=== PATIENT | male | born 1950 | race Caucasian/White ===

== ENCOUNTER 2022-07-08 08:02 | Emergency (ER) | payer MEDICARE, SELFPAY ==
--- NOTE | 2022-07-08 08:05 | ED.URI ---
HPI - URI/Sore Throat General Chief Complaint: Upper Respiratory Infection Stated Complaint: TIGHT/SCRATCHY THROAT Time Seen by Provider: 07/08/22 08:05 Source: patient Mode of arrival: ambulatory Limitations: no limitations History of Present Illness HPI Narrative: Mr. Justin is a 71-year-old male patient presenting to the clinic today with complaints of a scratchy/irritated throat x1 day He reports his symptoms began yesterday with a runny nose and drainage in the back of his throat. He denies any fever or chills. He reports that his is also ill and has been seen and been given antibiotics for early pneumonia. MD elicited complaint: sore throat and nasal congestion Related Data Home Medications Medication Instructions Recorded Confirmed aspirin 325 mg tablet 325 mg PO DAILY 06/02/20 07/03/20 atorvastatin 40 mg tablet 40 mg PO DAILY 06/02/20 07/03/20 canagliflozin 100 mg tablet 100 mg PO DAILY 06/02/20 07/03/20 (Invokana) carvedilol 25 mg tablet 25 mg PO Q12H 06/02/20 07/03/20 cyanocobalamin (vitamin B-12) 1,000 mcg PO DAILY 06/02/20 07/03/20 1,000 mcg tablet flaxseed oil 1,000 mg capsule 1,000 mg PO DAILY 06/02/20 07/03/20 glimepiride 2 mg tablet 2 mg PO QAM 06/02/20 07/03/20 lactobacillus combination no.8 3 3,000 mmu cells PO DAILY 06/02/20 07/03/20 billion cell capsule (Adult Probiotic) metformin 1,000 mg tablet 1,000 mg PO BID 06/02/20 07/03/20 olmesartan 40 mg tablet 40 mg PO DAILY 06/02/20 07/03/20 dapagliflozin 5 mg tablet (Farxiga) mg 07/08/22 Allergies Allergy/AdvReac Type Severity Reaction Status Date / Time No Known Drug Allergies Allergy Unknown Unknown Verified 07/08/22 08:11 Review of Systems Review of Systems: Pertinent positives per HPI. Patient denies any fever, chills, rash, headache, visual changes, dizziness, cough, shortness of breath, chest pain, palpitations, nausea, vomiting, diarrhea, constipation, abdominal pain, or any urinary issues. [facility] Past Medical History Medical History Diabetes Type II Left shoulder pain Rotator cuff tear Tendinopathy of rotator cuff Vision abnormalities Family History Family History Unknown Diabetes mellitus Social History Social History Smoking status: Never smoker Alcohol intake: current Alcohol use details: occasionally Comments At the time of my signature, I reviewed and agree with the nursing past medical, surgical, social, and family history. There is no relevant family history pertinent to the patient complaint. Exam Narrative: General: Well-developed, well nourished, in no apparent distress Head: Normocephalic, atraumatic Eyes: Pupils equally round and reactive to light bilaterally, EOM intact, sclera and conjunctive clear, no discharge, lids normal Ears: TMs intact and clear, ear canals clear, no drainage, grossly hearing normal. Nose: Nares patent, clear nasal discharge, mild inflammation, no sinus tenderness. Mouth: Oropharynx without lesions or masses, good dentition, MMM. Postnasal drip Neck: Supple, trachea midline, no enlargement of anterior or posterior cervical nodes, no thyroid masses or goiter palpable. Cardio: Regular rate and rhythm, s1 and s2 normal, no murmur appreciated. Resp: Clear to auscultation bilaterally anteriorly and posteriorly, no rhonchi, rales, wheezing or rubs Course Course Emergency Course: Portions of this record may have been created with voice recognition software. Level of Care: Express Care Visit Vital Signs Vital signs: Vital Signs Temperature 36.6 C 07/08/22 08:13 Pulse Rate 52 L 07/08/22 08:13 Respiratory Rate 16 07/08/22 08:13 Blood Pressure 129/74 07/08/22 08:13 Pulse Oximetry 100 07/08/22 08:13 Oxygen Delivery Room Air 07/08/22 08:13 Temperature 36.6 C
[2022-07-08 08:13] VITALS: BP 129/74; PULSE 52; RESP 16; TEMP 36.6; O2SAT 100
== END 2022-07-08 08:42 | disposition home or self-care (01) ==
PROVIDERS: Emergency Provider Nurse Practitioner Family; PCP Internal Medicine
DX: R09.82 Postnasal drip (principal); J06.9 Acute upper respiratory infection, unspecified; E11.9 Type 2 diabetes mellitus without complications
CPT/HCPCS: 87081; 87880; 99213; G0463

== ENCOUNTER 2023-09-07 10:43 | Emergency (ER) | payer MEDICARE, SELFPAY ==
--- NOTE | 2023-09-07 10:50 | ED.URI ---
HPI - URI/Sore Throat General Chief Complaint: Upper Respiratory Infection Stated Complaint: Sore Throat Time Seen by Provider: 09/07/23 11:09 Source: patient and RN notes reviewed Mode of arrival: ambulatory Limitations: no limitations History of Present Illness HPI Narrative: 73 year old male presents with concern for sore throat, painful swallowing. He reports history of post nasal drainage. He is concerned for strep, but is also concerned about a potential reaction from an RSV vaccine he received 3 days ago. He denies fever, tongue swelling, lip swelling, vomiting, diarrhea, SOB. He denies cough, nasal congestion, cough MD elicited complaint: sore throat Related Data Home Medications Medication Instructions Recorded Confirmed aspirin 325 mg tablet 325 mg PO DAILY 06/02/20 09/07/23 atorvastatin 40 mg tablet 40 mg PO DAILY 06/02/20 09/07/23 carvedilol 25 mg tablet 25 mg PO Q12H 06/02/20 09/07/23 cyanocobalamin (vitamin B-12) 1,000 mcg PO DAILY 06/02/20 09/07/23 1,000 mcg tablet flaxseed oil 1,000 mg capsule 1,000 mg PO DAILY 06/02/20 09/07/23 glimepiride 2 mg tablet 2 mg PO QAM 06/02/20 09/07/23 lactobacillus combination no.8 3 3,000 mmu cells PO DAILY 06/02/20 09/07/23 billion cell capsule (Adult Probiotic) metformin 1,000 mg tablet 1,000 mg PO BID 06/02/20 09/07/23 olmesartan 40 mg tablet 40 mg PO DAILY 06/02/20 09/07/23 dapagliflozin propanediol 5 mg 5 mg PO DAILY 07/08/22 09/07/23 tablet (Farxiga) Allergies Allergy/AdvReac Type Severity Reaction Status Date / Time No Known Drug Allergies Allergy Unknown Unknown Verified 09/07/23 10:56 Review of Systems Review of Systems: CONSTITUTIONAL: Denies malaise, chills, sweats, or fever. EYES: Denies visual changes, redness, or discharge. ENT: Denies rhinorrhea, congestion, sinus pain, otalgia. Reports postnasal drainage and sore throat. CARDIOVASCULAR: Denies chest pain, palpitations, or edema. RESPIRATORY: Denies cough. Denies dyspnea. GASTROINTESTINAL: Denies abdominal pain, nausea, vomiting, diarrhea SKIN: Denies rash or itching. MUSCULOSKELETAL: Denies myalgia. NEUROLOGIC: Denies headache. All systems reviewed & are unremarkable except as noted in HPI and below PMFSH Past Medical History Medical History Diabetes Type II Left shoulder pain Rotator cuff tear Tendinopathy of rotator cuff Vision abnormalities Family History Family History Unknown Diabetes mellitus Social History Social History Smoking status: Never smoker Alcohol intake: current Alcohol use details: occasionally Comments At time of signature, agree with nursing past medical, surgical, social and family history. There is no relevant family history pertinent to the presenting complaint Exam Narrative: GENERAL: Well-appearing, well-nourished, and in no acute distress. HEAD: Normocephalic EYES: PERRLA, conjunctivae clear ENT: Nares clear. Mucous membranes moist. TM pearly tompkins with sharp light reflex bilaterally; no tragal tenderness. Oropharynx not erythematous without lesions. Tonsils not enlarged and without exudate, no drooling, no hoarseness, no trismus, uvula midline. Postnasal drainage noted NECK: Supple. No lymphadenopathy CHEST: Clear to auscultation, breath sounds equal. No wheezing, rhonchi, rales, or stridor. No respiratory distress, speaks in full sentences. HEART: Regular rate and rhythm. No murmur heard. SKIN: Warm, dry, no rash. NEURO: Alert and oriented x3. PSYCH: Normal mood and affect Course Course Emergency Course: Patient is aware of diagnosis, understands and agrees to treatment plan. Anticipatory guidance given. Patient agrees to follow-up as directed and is aware of reasons to seek care at the emergency department. Portions of this record may have been cre
[2023-09-07 10:59] VITALS: BP 132/64; PULSE 50; RESP 16; TEMP 36.5; O2SAT 100
[2023-09-07 11:02] VITALS: BP 132/64; PULSE 50; RESP 16; TEMP 36.5; O2SAT 100
== END 2023-09-07 11:20 | disposition home or self-care (01) ==
PROVIDERS: Emergency Provider Nurse Practitioner
DX: J02.9 Acute pharyngitis, unspecified (principal); E11.9 Type 2 diabetes mellitus without complications; Z79.84 Long term (current) use of oral hypoglycemic drugs; Z79.82 Long term (current) use of aspirin
CPT/HCPCS: 87081; 87880; 99213; G0463

== ENCOUNTER 2025-08-30 00:36 | Emergency (ER) | payer MEDICARE, SELFPAY ==
--- OUTSIDE RECORDS SUMMARY | 2025-08-29 08:30 | XMS_ITS | Encounter Summary ---
Author Organization [facility] Address [address] [place] [address] Phone Care Team Providers Care Telecommunications Sales Representative Name Role Phone Ronal Gama MD Primary Care Provider Vinnie Mina DO Unavailable [phone] Reason for Visit * Reason Comments Diabetes Mellitus 6 month follow up Encounter Details Date Type Department Care Team (Late st Contact Info) Description 08/29/2025 8:30 AM CDT Office Visit [facility] - [facility] [address] [place] [address] Ronal Gama MD [address] [address] Type 2 diabetes mellitus without complication, without long-term current use of insulin (Primary Dx); Essential hypertension; Pure hypercholesterolemia ; Screening for prostate cancer Discharge Disposition: Discharged to home or Selfcare Social History Tobacco Use Types Packs/Day Years Used Date Smoking Tobacco: Never Smokeless Tobacco: Never Tobacco Cessation:Counseling Given: No Alcohol Use Standard Drinks/Week Comments Yes 0 (1 standard drink = 0.6 oz pur e alcohol) weekends 2-3 drinks [facility] Utilities Answer Date Recorded In the past 12 months has e [place], gas, oil, or water [email or web address] threatened to shut off services in your home? No 02/25/2025 Social Connection and Isolation Panel Answer Date Recorded In a typical week, how many times do you talk on the phone with family, friends, or neighbors? Three times a week 02/26/20 How often do you get togethe r with friends or relatives? Once a week 02/25/2025 How often do you attend chur or mormonism services? Patient declined 02/25/2025 Do you belong to any clubs o r organizations such as voodoo groups, unions, fraternal or athletic groups, or school groups? Yes 02/25/2025 How often do you attend meet ings of the clubs or organizations you belong to? 1 to 4 times per year 02/25/2025 Are you , , di vorced, , never , or living with a partner? 02/25/2025 AUDIT-C Answer Date Recorded Q1: How often do you have a drink containing alc ohol? 2-4 times a month 02/25/2025 Average Number of Drinks Not on file 025 Q3: How often do you have si x or more drinks on one occasion? Never 02/25/2025 Overall Financial Resource Strain (CARDIA) Answe r Date Recorded How hard is it for you to pa y for the very basics like food, housing, medical care, and heating? Not hard at all 02/25/2025 PHQ-2 Answer Date Recorded Total Score - Questions 1-9 0 04/2024 [facility] - Occupational Stress Questionnaire Answer Date Recorded Do you feel stress - tense, restless, nervous, or anxious, or unable to sleep at night because your mind is troubled all the time - these days? Patient declined 02/25/2025 Exercise Vital Sign Answer Date Recorde d On average, how many days pe r week do you engage in moderate to strenuous exercise (like a brisk walk)? 4 days 02/25/2025 On average, how many minutes do you engage in exercise at this level? 40 min 02/25/2025 Hunger Vital Sign Answer Date Recorded Within the past 12 months, y ou worried that your food would run out before you got the money to buy more. Never true 02/26/20 25 Within the past 12 months, t he food you bought just didn't last and you didn't have money to get more. Never true 02/25/2025 PRAPARE - Transportation Answer Date Re corded In the past 12 months, has l ack of transportation kept you from medical appointments or from getting medications? No 02/06 In the past 12 months, has l ack of transportation kept you from meetings, work, or from getting things needed for daily living? No 02/25/2025 Housing Stability Vital Sign Answer Ron e Recorded In the last 12 months, was t here a time when you were not able to pay the mortgage or rent on time? No 12/11/2023 In the last 12 months, how many places have you lived? 1 12/11/2023 In the last 12 months, was t here a time when you did not have a steady place to sleep or slept in a intermediate (including now)? No 12/11/2023 Housing Stability Vital Sign Answer Ron e Recorded In the last 12 months, was t here a time when you were not able to pay the mortgage or rent on time? No 02/25/2025 Number of Times Moved in the Last Year Not on fi le 02/25/2025 At any time in the past 12 m [facility], were you homeless or living in a intermediate (including now)? No 02/25/2025 Education Answer Date Recorded What is the highest level of school you have completed or the highest degree you have received? Master's degree (e.g., MA, MS, Scott, MEd, [employer]FFEE [employer], [employer]) 06/22/2023 Sex and Gender Information Value Date Recorded Sex Assigned at Male 06/21/2023 10:36 AM CDT Legal Sex Male 10:00 PM CDT Gender Identity Male 06/21/2023 10:36 AM CDT Sexual Orientation Not on file Occupation Industry Job Start Date Job End Date retired from [employer]. Not on file Not o n file Not on file documented as of this encounter Last Filed Vital Signs Vital Sign Reading Time Taken Comments Blood Pressure 92/54 08/29/2025 8:15 AM CDT Pulse 58 08/29/2025 8:15 AM CDT Temperature 36.3 C (97.4 F) 08/29/2025 8:15 AM CDT Respiratory Rate 16 08/29/2025 8:15 AM CDT Oxygen Saturation 99% 08/29/2025 8:15 AM CDT Inhaled Oxygen Concentration - - Weight 75.9 kg (167 lb 4.8 oz) 08/29/2025 8:15 A M CDT Height 172.7 cm (5' 8) 08/29/2025 8:15 AM CDT Body Mass Index 25.44 08/29/2025 8:15 AM CDT documented in this encounter Progress Notes * AusitnNolvia mckoy, RMA - 08/29/2025 8:30 AM CDT Kian Lebron Justin Jr., 75 y.o., male is here for Diabetes Mellitus (6 month follow up ) Medication Refills: Patient reports/denies need for medication refills. Orders Pended: no Requested Prescriptions No prescriptions requested or ordered in this encounter Home Medications Medication Sig Start Date End Date Taking? Authorizing Provider aspirin EC (ECOTRIN) 325 MG Tablet Delayed Response Take 325 mg by mouth daily. Yes Wyatt Tellez MD atorvastatin (LIPITOR) 80 MG Tablet TAKE 1/2 TABLET BY MOUTH DAILY 04/16/25 Yes Ronal Gama MD carvedilol (COREG) 25 MG Tablet TAKE 1 TABLET BY MOUTH EVERY DAY 07/24/25 Yes Ronal Gama MD Farxiga 5 MG Tablet TAKE 1 TABLET BY MOUTH DAILY 07/10/25 Yes Ronal Gama MD Flaxseed, Linseed, (FLAXSEED OIL PO) Take by mouth. Patient not taking: Reported on 08/29/2025 Wyatt Tellez MD meclizine (ANTIVERT) 25 MG Tablet Take 1 Tab by mouth 3 times daily as needed for Dizziness. Patient not taking: Reported on 08/29/2025 01/14/20 Belkys Pal APRN, VENDING MACHINE COLLECTOR metFORMIN (GLUCOPHAGE) 1000 MG Tablet TAKE 1 TABLET BY MOUTH TWICE DAILY 05/13/25 Yes Ronal Gama MD metoclopramide (REGLAN) 10 MG Tablet Take 1 Tab by mouth 4 times daily as needed for Nausea - 1st line. Patient not taking: Reported on 08/29/2025 04/12/18 Sanjiv Will MD Olmesartan Medoxomil 40 MG Tablet TAKE 1 TABLET BY MOUTH DAILY 05/13/25 Yes Ronal Gama MD ondansetron (ZOFRAN) 4 MG Tablet Take 1 Tab by mouth every 8 hours as needed for Nausea - 1st line.01/14/20 Yes Belkys Pal, INSIDE PLANT SUPERVISOR, VENDING MACHINE COLLECTOR There are no discontinued medications. I have reviewed the home medication list with the patient and have reconciled discrepancies. The list is accurate to the best of my knowledge. Smoking Status: Social History[1] Smoking Cessation Counseling Given: no Health Care Maintenance: Health Maintenance Due Topic Date Due Hepatitis C Virus (HCV) Screening Never done TdaP Immunization Never done Hepatitis B Immunization (1 of 3 - Risk 3-dose series) Never done Medicare Initial AWV [id number] Never done Diabetes: Eye Exam 11/19/2025 Orders Pended: no The following BPA's have been addressed with the patient today: No BPAs [1] Social History Tobacco Use Smoking status: Never Smokeless tobacco: Never Vaping Use Vaping status: Never Used Substance Use Topics Alcohol use: Yes Alcohol/week: 0.0 oz Comment: weekends 2-3 drinks Drug use: No * Ronal Gama MD - 08/29/2025 8:30 AM CDT SUBJECTIVE: Kian Justin is here to follow-up/ evaluation on his 1. Type 2 diabetes mellitus without complication, without long-term current use of insulin 2. Essential hypertension 3. Pure hypercholesterolemia Past Medical History Positives Diagnosis Date Adenomatous colon polyp Diabetes mellitus Hyperlipidemia Hypertension Obesity Past Surgical History[1] Social History Tobacco Use Smoking status: Never Smokeless tobacco: Never Substance Use Topics Alcohol use: Yes Alcohol/week: 0.0 oz Comment: weekends 2-3 drinks Exercise: yes. Swims 3 times weekly ROS: He denies chest pain, dyspnea, claudication, visual symptoms. He denies symptoms of transient ischemic attacks. No lightheadedness, palpitations, or syncope. No edema. He is compliant in taking his medication and denies medication side effects. Says doing okay Has lost weight Outpatient Medications Marked as Taking for the 08/29/25 encounter (Office Visit) with Ronal Gama MD Medication Sig Dispense Refill aspirin EC (ECOTRIN) 325 MG Tablet Delayed Response Take 325 mg by mouth daily. atorvastatin (LIPITOR) 80 MG Tablet TAKE 1/2 TABLET BY MOUTH DAILY 46 Tablet 1 carvedilol (COREG) 25 MG Tablet TAKE 1 TABLET BY MOUTH EVERY DAY 90 Tablet 1 Farxiga 5 MG Tablet TAKE 1 TABLET BY MOUTH DAILY 90 Tablet 1 metFORMIN (GLUCOPHAGE) 1000 MG Tablet TAKE 1 TABLET BY MOUTH TWICE DAILY 180 Tablet 1 Olmesartan Medoxomil 40 MG Tablet TAKE 1 TABLET BY MOUTH DAILY 90 Tablet 1 ondansetron (ZOFRAN) 4 MG Tablet Take 1 Tab by mouth every 8 hours as needed for Nausea - 1st line.15 Tab 0 Allergies[2] LABS Lab Results Component Value Date WBC 6.68 08/22/2025 HEMOGLOBIN 14.0 08/22/2025 PLATELETCNT 227 08/22/2025 CHOLESTEROL 103 08/22/2025 TRIGLYCRIDES 68 08/22/2025 TRIGLYCRIDES 55 01/31/2025 TRIGLYCRIDES 56 06/12/2024 HDLCHOLESTE 41 08/22/2025 HDLCHOLESTE 39 (L) 01/31/2025 HDLCHOLESTE 35 (L) 06/12/2024 LDL 48 08/22/2025 LDL 52 01/31/2025 LDL 59 06/12/2024 PSASCREEN 0.19 11/22/2023 HGBA1C 5.5 08/22/2025 HGBA1C 5.1 01/31/2025 HGBA1C 5.6 06/12/2024 MACRRAND 8 06/12/2024 [id number] 01/31/2025 Lab Results Component Value Date SODIUM 141 08/22/2025 POTASSIUM 3.8 08/22/2025 CHLORIDE 107 08/22/2025 CO2VEN 25 08/22/2025 ANIONGAP 12.8 08/22/2025 GLUCOSE 136 (H) 08/22/2025 BUN 13 08/22/2025 CREATININE 0.83 08/22/2025 BCRATIO8 16 08/22/2025 TOTALPROTEIN 6.5 08/22/2025 ALBUMIN 3.8 08/22/2025 CALCIUM 9.3 08/22/2025 TBIL 0.4 08/22/2025 SGOTAST 28 08/22/2025 SGPTALT 31 08/22/2025 ALKALINEPHO 61 08/22/2025 GFRNA >60 08/22/2025 GFRA >60 08/22/2025 TSH 0.804 08/22/2025 OBJECTIVE Well-nourished, well-developed, pleasant, cooperative 75 y.o. male in no acute distress. Vitals: 08/29/25 0815 BP: 92/54 Pulse: 58 Resp: 16 Temp: 97.4 ??F (36.3 ??C) TempSrc: Temporal SpO2: 99% Weight: 167 lb 4.8 oz (75.9 kg) Height: 5' 8 (1.727 m) Body mass index is 25.44 kg/m??. BP Readings from Last 3 Encounters: 08/29/25 92/54 02/27/25 110/64 07/16/24 112/64 Wt Readings from Last 3 Encounters: 08/29/25 167 lb 4.8 oz (75.9 kg) 02/27/25 176 lb 14.4 oz (80.2 kg) 07/16/24 191 lb 12.8 oz (87 kg) SKIN: Warm and dry. EYES:. Sclerae are clear. NECK: Supple. No thyromegaly or adenopathy, no bruits. BACK: No spine or costovertebral angle tenderness. LUNGS: Clear to auscultation and percussion. HEART:normal rate, regular rhythm, normal S1, S2, no murmurs, rubs, clicks or gallops. ABDOMEN: Bowel sounds are active. No masses. No organomegaly, no tenderness. No bruits. EXTREMITIES: No edema. Glasses Alert ASSESSMENT AND PLAN Diagnoses and all orders for this visit: Type 2 diabetes mellitus without complication, without long-term current use of insulin Essential hypertension Pure hypercholesterolemia There are no discontinued medications. No follow-ups on file. After visit summary discussed with patient. Documentation for this visit on 08/29/2025 was completed using a template. I have seen and examinedthe patient. Everything documented was personally performed at this visit with the necessary additions, deletions and changes made as appropriate. Dm: aic 5.5. no changes on farxiga. Stable Hyperlipidemia: on lipitor. No changes. Ldl fine Weight loss: no changes in diet. On farxiga. Appetitie not as good. Cbc fine. Tsh fine Able to exercise fine. Was active over summer gardening Htn: on olmesartan. No changes. Bp okay Time spent in open communication and establishing rapport with the patient was essential for effectively conveying assessment and plan, optimizing health outcomes, and fostering a trusting long-term provider-patient relationship. [1] Past Surgical History: Procedure Laterality Date BLEPHAROPLASTY Left 2002 most recent x2 CATARACT REMOVAL WITH IMPLANT Bilateral COLONOSCOPY N/A 04/13/2016 Procedure: COLONOSCOPY, POLYP CECUM, POLYP DISTAL ASCENDING, POLYP TRANSVERSE, POLYP DESCENDING SNARE. POLYP RECTUM; Surgeon: Vinnie Mina DO; Location: [facility]; Service: KNEE ARTHROSCOPY Left [2] Allergies Allergen Reactions Niacin Itching Reaction: ITCHING, Zinc Other (see Comments) Hydrocodone Nausea and Other (see Comments) lightheaded lightheaded Liraglutide Vomiting documented in this encounter Plan of Treatment Upcoming Encounters Date Type Department Care Team (Late st Contact Info) Description 02/20/2026 8:00 AM CDT Lab [facility] #[address] [address] Giuliano Richardson Lab/Ancillary 03/03/2026 9:00 AM CDT Office Visit [facility] - [place] [address] [place] [address] Ronal Gama MD #[address] [address] Scheduled Orders Name Type Priority Associated Diagnoses Orde r Schedule LIPID PANEL Lab Routine Type 2 diabetes mellitus without complication, without long-term current use of insulin Essential hypertension Expected: 02/27/2026 (Approximate), Expires: 03/29/2026 CMP (COMPREHENSIVE METABOLIC PANEL) Lab Routine Type 2 diabetes mellitus without complication, without long-term current use of insulin Essential hypertension Expected: 02/27/2026 (Approximate), Expires: 03/29/2026 HEMOGLOBIN A1C W/ ESTIMATED GLUCOSE Lab Routine Type 2 diabetes mellitus without complication, without long-term current use of insulin Essential hypertension Expected: 02/27/2026 (Approximate), Expires: 03/29/2026 UR MICROALBUMIN/CREATININE RATIO RANDOM Lab Routine Type 2 diabetes mellitus without complication, without long-term current use of insulin Essential hypertension Expected: 02/27/2026 (Approximate), Expires: 03/29/2026 PSA SCREEN Lab Routine Screening for prostate cancer Expected: 02/27/2026 (Approximate), Expires: 03/29/2026 documented as of this encounter Visit Diagnoses Diagnosis Type 2 diabetes mellitus without complication, without long-term current use of insulin- Primary Essential hypertension Unspecified essential hypertension Pure hypercholesterolemia Screening for prostate cancer Special screening for malignant neoplasm of prostate documented in this encounter Additional Health Concerns Assessment Noted Time PHQ-9 Depression Total Score: 0 12/13/19 24 7:34 AM ADJUNCT PSYCHOLOGY PROFESSOR documented as of this encounter Care Teams Telecommunications Sales Representative Relationship Specialty Start Date End Date Ronal Gama MD #[address] [address] PCP - General Family Medicine 09/24/15 Vinnie Mina DO #[address] [address] Consulting Physician Gastroenterology 11/23/18 documented as of this encounter
--- OUTSIDE RECORDS SUMMARY | 2025-08-30 00:38 | XMS_ITS | Encounter Summary ---
Author Organization [facility] Address [address] [place] [address] Phone Care Team Providers Care Refrigeration Houseman Name Role Phone Ronal Gama MD Primary Care Provider Vinnie Mina DO Unavailable [phone] Reason for Visit * Reason Comments Medication Refill Encounter Details Date Type Department Care Team (Late st Contact Info) Description 03/03/2024 Refill [facility] - Family [facility] #2 [place] [address] Ronal Gama MD #[address] [address] Medication Refill Social History Tobacco Use Types Packs/Day Years Used Date Smoking Tobacco: Never Smokeless Tobacco: Never Alcohol Use Standard Drinks/Week Comments Yes 0 (1 standard drink = 0.6 oz pur e alcohol) weekends 2-3 drinks [facility] Utilities Answer Date Recorded In the past 12 months has [employer] electric, gas, oil, or water company threatened to shut off services in your home? No 12/11/2023 Social Connection and Isolation Panel Answer Date Recorded In a typical week, how many times do you talk on the phone with family, friends, or neighbors? Three times a week 12/11/19 24 How often do you get togethe r with friends or relatives? Once a week 12/11/2023 How often do you attend chur or lutheran services? Never 12/11/2023 Do you belong to any clubs o r organizations such as mormonism groups, unions, fraternal or athletic groups, or school groups? Yes 12/11/2023 How often do you attend meet ings of the clubs or organizations you belong to? 1 to 4 times per year 12/11/2023 Are you , , di vorced, , never , or living with a partner? 12/11/2023 AUDIT-C Answer Date Recorded Q1: How often do you have a drink containing alc ohol? 2-4 times a month 12/11/2023 Q2: How many drinks containi ng alcohol do you have on a typical day when you are drinking? 1 or 2 12/11/2023 Q3: How often do you have si x or more drinks on one occasion? Never 12/11/2023 Overall Financial Resource Strain (CARDIA) Answe r Date Recorded How hard is it for you to pa y for the very basics like food, housing, medical care, and heating? Not hard at all 12/11/2023 PHQ-2 Answer Date Recorded Total Score - Questions 1-9 0 04/2024 [facility] - Occupational Stress Questionnaire Answer Date Recorded Do you feel stress - tense, restless, nervous, or anxious, or unable to sleep at night because your mind is troubled all the time - these days? Only a little 12/11/2023 Exercise Vital Sign Answer Date Recorde d On average, how many days pe r week do you engage in moderate to strenuous exercise (like a brisk walk)? 3 days 12/11/2023 On average, how many minutes do you engage in exercise at this level? 30 min 12/11/2023 Hunger Vital Sign Answer Date Recorded Within the past 12 months, y ou worried that your food would run out before you got the money to buy more. Never true 12/11/19 24 Within the past 12 months, t he food you bought just didn't last and you didn't have money to get more. Never true 12/11/2023 PRAPARE - Transportation Answer Date Re corded In the past 12 months, has l ack of transportation kept you from medical appointments or from getting medications? No 02/2024 In the past 12 months, has l ack of transportation kept you from meetings, work, or from getting things needed for daily living? No 12/11/2023 Housing Stability Vital Sign Answer [...] place to sleep or slept in a [place] [facility] [place] (including now)? No 12/11/2023 Education Answer Date Recorded What is the highest level of school you have completed or the highest degree you have received? Master's degree (e.g., MA, MS, Scott, MEd, AGRICULTURE SPECIALIST, COOKIE) 06/22/2023 Sex and Gender Information Value Date Recorded Sex Assigned at Male 06/21/2023 10:36 AM CDT Legal Sex Male 10:00 PM CDT Gender Identity Male 06/21/2023 10:36 AM CDT Sexual Orientation Not on file Occupation Industry Job Start Date Job End Date retired from [employer]. Not on file Not o n file Not on file documented as of this encounter Miscellaneous Notes * Telephone Encounter - Winifred Muir RN - 03/05/2024 8:45 AM CDT Reordered 02/09/24 - 1 year supply - [facility] on [address] in [place] documented in this encounter Plan of Treatment Upcoming Encounters Date Type Department Care Team (Late st Contact Info) Description 02/20/2026 8:00 AM CDT Lab [facility] [address] [address] [facility] Lab/Ancillary 03/03/2026 9:00 AM CDT Office Visit [facility] - Family Medicine [facility] #[address] [place] [address] Ronal Gama MD #[address] [address] documented as of this encounter Visit Diagnoses Not on filedocumented in this encounter Additional Health Concerns Assessment Noted Time PHQ-9 Depression Total Score: 0 12/13/19 24 7:34 AM PEDIATRIC ORTHODONTIST documented as of this encounter Care Teams Refrigeration Houseman Relationship Specialty Start Date End Date Ronal Gama MD [address] [address] PCP - General Family Medicine 09/24/15 Vinnie Mina DO #[address] [address] Consulting Physician Gastroenterology 11/23/18 documented as of this encounter
--- OUTSIDE RECORDS SUMMARY | 2025-08-30 00:38 | XMS_ITS | Encounter Summary ---
Author Organization [facility] Address [address] [address] Phone Care Team Providers Care Pit Slagman Name Role Phone Ronal Gama MD Primary Care Provider Vinnie Mina DO Unavailable [phone] Reason for Visit * Reason Comments Medication Refill Encounter Details Date Type Department Care Team (Late st Contact Info) Description 03/17/2023 Refill [facility] - Family [facility] #2 [place] [address] Ronal Gama MD #[address] [address] Medication Refill Social History Tobacco Use Types Packs/Day Years Used Date Smoking Tobacco: Never Smokeless Tobacco: Never Alcohol Use Standard Drinks/Week Comments Yes 0 (1 standard drink = 0.6 oz pur e alcohol) weekends 2-3 drinks PHQ-2 Answer Date Recorded Total Score - Questions 1-9 0 12/08 Sex and Gender Information Value Date Recorded Sex Assigned at Male 06/21/2023 10:36 AM CDT Legal Sex Male 10:00 PM CDT Gender Identity Male 06/21/2023 10:36 AM CDT Sexual Orientation Not on file Occupation Industry Job Start Date Job End Date retired from [employer]. Not on file Not o n file Not on file documented as of this encounter Miscellaneous Notes * Telephone Encounter - Winifred Muir RN - 03/17/2023 5:13 PM CDT Last ordered: Today by Ronal Gama MD 03/17/23 documented in this encounter Plan of Treatment Upcoming Encounters Date Type Department Care Team (Late st Contact Info) Description 02/20/2026 8:00 AM CDT Lab [facility] #[address] [address] [facility] Lab/Ancillary 03/03/2026 9:00 AM CDT Office Visit [facility] - [facility] [address] [place] [address] Ronal Gama MD #[address] [address] documented as of this encounter Visit Diagnoses Not on filedocumented in this encounter Additional Health Concerns Assessment Noted Time PHQ-9 Depression Total Score: 0 12/24/19 21 7:59 AM FINANCIAL AGENT documented as of this encounter Care Teams Pit Slagman Relationship Specialty Start Date End Date Ronal Gama MD [address] [place] [address] PCP - General Family Medicine 09/24/15 Vinnie Mina DO #[address] [place] [address] Consulting Physician Gastroenterology 11/23/18 documented as of this encounter
--- OUTSIDE RECORDS SUMMARY | 2025-08-30 00:38 | XMS_ITS | Encounter Summary ---
Author Organization [facility] Address [address] [facility] [place] [address] Care Team Providers Care Tearoom Host Name Role Phone Unavailable Primary Care Provider Unavailabl e Encounter Details Date Type Department Care Team (Late st Contact Info) Description 12/30/2022 Lab Requisition [facility] Lab [address] [place] [address] Meir Clay MD [address] [place], [place] [id number] Social History Tobacco Use Types Packs/Day Years Used Date Smoking Tobacco: Never Assessed Sex and Gender Information Value Date Recorded Sex Assigned at Not on file Legal Sex Male 6:06 AM GLYCERIN SUPERVISOR Gender Identity Not on file Sexual Orientation Not on file documented as of this encounter Plan of Treatment Not on file documented as of this encounter Procedures Procedure Name Priority Date/Time Associated Diagnosis Comments DERMATOPATHOLOGY Routine 12/29/2022 3:33 AM GLYCERIN SUPERVISOR documented in this encounter Results * DERMATOPATHOLOGY (12/29/2022 3:33 AM GLYCERIN SUPERVISOR) Case Report Dermatopathology Report Case: [id number] Authorizing Provider: Meir Clay MD Collected: 12/29/2022 03:33 AM Ordering Location: [facility] Care DermPath Lab Received: 12/30/2022 12:54 PM Pathologist: Zonia Yanes MD Specimen: Skin, right helix rim 3 5:07 PM GLYCERIN SUPERVISOR DERMATOPATHOLOGY LABORATORY Final Diagnosis Specimen A. 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 Check Margins. 3 5:07 PM [facility] DERMATOPATHOLOGY LABORATORY Gross Description Specimen A: Received is one formalin filled container labeled with the patients name and designated right helix rim. The specimen consists of a shave removal measuring 7x5x1 mm. Jar 0. 3 5:07 PM [facility] DERMATOPATHOLOGY LABORATORY Microscopic Description Specimen A. SKIN, right helix rim: There is epidermal hyperplasia overlying dilated blood vessels and fibroplasia. This lesion is present at the margin of the specimen. 3 5:07 PM [facility] DERMATOPATHOLOGY LABORATORY Disclaimer An external and internal positive and negative controls are appropriate for the histochemical, immunohistochemical and immunofluorescence stain(s) in this case (if any), except where stated explicitly. The performance characteristics of the stain(s) cited in this report were developed and its performance characteristic determined by the Dermatopathology Laboratory at [facility], directed by Dr. Boy Yanes. These tests need not be, and therefore are not, approved by the [place] Food and Drug Administration. The tests are used for clinical purposes. Billing Codes Specimen Charges Stain Charges 90095 1 3 5:07 PM [facility] DERMATOPATHOLOGY LABORATORY Embedded Images 3 5:07 PM [facility] DERMATOPATHOLOGY LABORATORY Pathology/Cytolo gy TISSUE SPECIMEN FROM SKIN / Unknown 12/29/2022 3:33 AM GLYCERIN SUPERVISOR 12/30/2022 12:54 PM GLYCERIN SUPERVISOR Meir Clay MD LAB - PATHOLOGY/CYTOLOGY ORD ERABLES Final Result DERMATOPATHOLOGY LABORATORY [facility] - Department of Dermatology [facility] Medicine [address] [place] [address], [address] [place] [address], [facility] [phone] documented in this encounter Visit Diagnoses Not on filedocumented in this encounter
--- OUTSIDE RECORDS SUMMARY | 2025-08-30 00:38 | XMS_ITS | Encounter Summary ---
Author Organization [facility] Address [address] [place] [address] Phone Care Team Providers Care Asbestos Siding Mechanic Name Role Phone Ronal Gama MD Primary Care Provider Vinnie Mina DO Unavailable Reason for Visit * Reason Comments Medication Refill Encounter Details Date Type Department Care Team (Late st Contact Info) Description 09/13/[address] [facility] - Family Medicine [facility] #[address] [place] [address] Ronal Gama MD #[address] [address] Medication Refill Social History Tobacco Use Types Packs/Day Years Used Date Smoking Tobacco: Never Smokeless Tobacco: Never Alcohol Use Standard Drinks/Week Comments Yes 0 (1 standard drink = 0.6 oz pur e alcohol) weekends 2-3 drinks PHQ-2 Answer Date Recorded Total Score - Questions 1-9 0 12/08 Education Answer Date Recorded What is the highest level of school you have completed or the highest degree you have received? Master's degree (e.g., MA, MS, Scott, MEd, TOWER TECHNICIAN, COOKIE) 06/22/2023 Sex and Gender Information Value Date Recorded Sex Assigned at Male 06/21/2023 10:36 AM CDT Legal Sex Male 10:00 PM CDT Gender Identity Male 06/21/2023 10:36 AM CDT Sexual Orientation Not on file Occupation Industry Job Start Date Job End Date retired from [employer]. Not on file Not o n file Not on file documented as of this encounter Miscellaneous Notes * Telephone Encounter - Winifred Muir RN - 09/13/2023 9:48 AM CST Medication failed the protocol, provider to review and approve the medication order if appropriate. Requested Prescriptions Pending Prescriptions Disp Refills Farxiga 5 MG Tablet [Pharmacy Med Name: FARXIGA 5MG TABLETS] 90 Tablet 1 Sig: TAKE 1 TABLET BY MOUTH DAILY SGLT2 Inhibitors Protocol Failed - 09/13/2023 5:55 AM Failed - GFR greater than or equal to 30 in past 6 months GFR, EST. NONAFRICAN Date Value Ref Range Status 01/24/2023 >60 >=60 Final Passed - Visit with relevant provider in past 6 months or upcoming 90 days Recent Visits Date Type Provider Dept 06/22/23 Office Visit Ronal Gama MD [facility] Showing recent visits within past 182 days and meeting all other requirements Future Appointments Date Type Provider Dept 11/29/23 Appointment Ronal Gama MD [facility] Showing future appointments within next 90 days and meeting all other requirements Passed - HgA1C on record in past 6 months HGB-A1C Date Value Ref Range Status 05/26/2023 5.9 4.0 - 6.0 % Final FENCE ERECTOR documented in this encounter Plan of Treatment Upcoming Encounters Date Type Department Care Team (Late st Contact Info) Description 02/20/2026 8:00 AM CDT Lab [facility] [address] [place] [address] [facility] Lab/Ancillary 03/03/2026 9:00 AM CDT Office Visit [facility] - [place] #2 [place] [address] Ronal Gama MD [address] [address] documented as of this encounter Visit Diagnoses Not on filedocumented in this encounter Additional Health Concerns Assessment Noted Time PHQ-9 Depression Total Score: 0 12/24/19 21 7:59 AM WIRE FENCE ERECTOR documented as of this encounter Care Teams Asbestos Siding Mechanic Relationship Specialty Start Date End Date Ronal Gama MD #[address] [address] PCP - General Family Medicine 09/24/15 Vinnie Mina DO #[address] [address] Consulting Physician Gastroenterology 11/23/18 documented as of this encounter
--- OUTSIDE RECORDS SUMMARY | 2025-08-30 00:38 | XMS_ITS | Clinical Summary ---
Author Organization [facility] Address [address] [address] Phone Care Team Providers Care Security Guard Name Role Phone Ronal Gama MD Primary Care Provider [phone] Vinnie Mina DO Unavailable [phone] Allergies Active Allergy Reactions Criticality Noted Date Comments Hydrocodone Nausea,Other (see Comments) Low 04/09/2016 lightheaded lightheaded Liraglutide Vomiting Low 04/17/2018 Niacin Itching Reaction: ITCHING, Zinc Other (see Comments) 12/18/2019 Medications aspirin EC (ECOTRIN) 325 MG Tablet Delayed Response Take 325 mg by mouth daily. Active ondansetron (ZOFRAN) 4 MG TabletIndication s:BPPV (benign paroxysmal positional vertigo), left Take 1 Tab by mouth every 8 hours as needed for Nausea - 1st line. 15 Tab 0 Active atorvastatin (LIPITOR) 80 MG Tablet TAKE 1/2 TABLET BY MOUTH DAILY 46 Tablet 1 5 Active Olmesartan Medoxomil 40 MG Tablet TAKE 1 TABLET BY MOUTH DAILY 90 Tablet 1 5 Active metFORMIN (GLUCOPHAGE) 1000 MG Tablet TAKE 1 TABLET BY MOUTH TWICE DAILY 180 Tablet 1 5 Active carvedilol (COREG) 25 MG Tablet TAKE 1 TABLET BY MOUTH EVERY DAY 90 Tablet 1 5 Active dapagliflozin propanediol (Farxiga) 5 MG Tablet Take 1 Tablet by mouth daily. 90 Tablet 3 5 Active metoclopramide (REGLAN) 10 MG Tablet Take 1 Tab by mouth 4 times daily as needed for Nausea - 1st line. 20 Tab 8 08/29/20 Discontinu ed(Error) meclizine (ANTIVERT) 25 MG TabletIndication s:BPPV (benign paroxysmal positional vertigo), left Take 1 Tab by mouth 3 times daily as needed for Dizziness. 30 Tab 0 08/29/20 Discontinu ed(Error) Flaxseed, Linseed, (FLAXSEED OIL PO) Take by mouth. 08/29/20 Discontinu ed(Med List Clean Up) Farxiga 5 MG Tablet TAKE 1 TABLET BY MOUTH DAILY 90 Tablet 1 5 08/29/20 Discontinu ed(Reorder ) Active Problems Problem Noted Date Diagnosed Date Non-intractable vomiting with nausea 04/17/2018 Screening for prostate cancer 10/05/2016 Screening for colon cancer 01/28/2016 HTN (hypertension) 10/01/2015 Hyperlipidemia 10/01/2015 Diabetes 10/01/2015 Colon cancer high risk 10/01/2015 Encounters Date Type Department Care Team Description 08/29/2025 8:30 AM CDT Office Visit [facility] [address] [place] [address] Ronal Gama MD Type 2 diabetes mellitus without complication, without long-term current use of insulin (Primary Dx); Essential hypertension; Pure hypercholesterolemia ; Screening for prostate cancer Discharge Disposition: Discharged to home or Selfcare 08/28/2025 Travel 08/22/2025 8:20 AM CDT Immunization [facility] [address] [place] [address] Encounter for immunization (Primary Dx) Discharge Disposition: Discharged to home or Selfcare 08/22/2025 8:00 AM CDT Lab [facility] #2 [facility] [address] [place] [address] Lab [facility]/Ancillary Type 2 diabetes mellitus without complication, without long-term current use of insulin; Essential hypertension; Pure hypercholesterolemia ; Primary hypertension; Type 2 diabetes mellitus with stage 1 chronic kidney disease, without long-term current use of insulin Discharge Disposition: Discharged to home or Selfcare 08/20/2025 Travel 07/24/2025 Refill [facility] [facility] [place] [address] Ronal Gama MD Medication Refill 07/22/2025 Nurse Triage [facility] [address] [place] [phone] Ronal Gaam MD Weight Loss 07/09/2025 Refill [facility] [address] [place] [address] Ronal Gama MD Medication Refill 06/03/2025 Patient Outreach [facility] [address] [place] [phone] Bharati Avila TRIPE COOKER Care Management from Last 3 Months Immunizations Immunization Administration Dates Next Due COVID-19, Mrna, Lnp-s, Pf, 5 0 mcg/0.5 mL 07/29/2023 Covid-19, Mrna, Lnp-s, Bival ent, Moderna, 50 Mcg or 25 mcg dose 08/04/2022 Covid-19, Mrna, Lnp-s, PF, 1 00 mcg/0.5 mL Dose (Moderna) 01/10/2021,12/13/2020 Covid-19, Mrna, Lnp-s, Pf, 3 0 Mcg/0.3 Ml Dose (Pfizer) 09/23/2021 Influenza Vaccine 08/18/2016 Influenza Vaccine greater than 3 yrs 07/15/2020 Influenza Vaccine less than 3 yrs 07/26/2023, Influenza, High-dose, Quadrivalent 07/26,07/16/2022,07/23/2021,2019 Influenza, Trivalent, Adjuvanted, PF 08/22/2025, 07/16/2024,08/07/2019 Influenza, high-dose, trivalent, PF 07/15/2020,1 11/08/2017,09/20/2017 PUR PCV-13 10/01/2015 Pneumococcal Vaccine - 13 Valent 10/01/2015,09/07 Pneumococcal Vaccine Adult - 23 Valent 07/17/2015,09/04/2012 RSV, Recombinant, Protein Morales bunit Rsvpref, Adjuvant Recon (Arexvy) 09/05/2023 Sars-cov-2 (Covid-19) Vaccin e, Unspecified 07/26/2025 Zoster Vaccine Recombinant 11/11/2023,06/23/2023 Family History Medical History Relation Name Comments Dementia Father No Known Problems Mother Diabetes Paternal Grandmother Relation Name Status Comments Father Mother Paternal Grandmother Social History Tobacco Use Types Packs/Day Years Used Date Smoking Tobacco: Never Smokeless Tobacco: Never Tobacco Cessation:Counseling Given: No Alcohol Use Standard Drinks/Week Comments Yes 0 (1 standard drink = 0.6 oz pur e alcohol) weekends 2-3 drinks [employer] Utilities Answer Date Recorded In the past 12 months has [employer], gas, oil, or water [employer] threatened to shut off services in your home? No 02/25/2025 Social Connection and Isolation Panel Answer Date Recorded In a typical week, how many times do you talk on the phone with family, friends, or neighbors? Three times a week 02/26/20 How often do you get togethe r with friends or relatives? Once a week 02/25/2025 How often do you attend [facility] or restorationism services? Patient declined 02/25/2025 Do you belong to any clubs o r organizations such as pentecostalism groups, unions, fraternal or athletic groups, or [...] Total Score - Questions 1-9 0 04/2024 [facility] - Occupational Stress [...] place to sleep or slept in a halfway (including now)? No 12/11/2023 Housing Stability Vital Sign Answer Ron e Recorded In the last 12 months, was t here a time when you were not able to pay the mortgage or rent on time? No 02/25/2025 Number of Times Moved in the Last Year Not on fi le 02/25/2025 At any time in the past 12 m onths, were you homeless or living in a halfway (including now)? No 02/25/2025 Education Answer Date Recorded What is the highest level of school you have completed or the highest degree you have received? Master's degree (e.g., MA, MS, Scott, MEd, [employer], COOKIE) 06/22/2023 Sex and Gender Information Value Date Recorded Sex Assigned at Male 06/21/2023 10:36 AM CDT Legal Sex Male 10:00 PM CDT Gender Identity Male 06/21/2023 10:36 AM CDT Sexual Orientation Not on file Occupation Industry Job Start Date Job End Date retired from [employer]. Not on file Not o n file Not on file Last Filed Vital Signs Vital Sign Reading [...] Mass Index 25.44 08/29/2025 8:15 AM CDT Plan of Treatment Upcoming Encounters Date Type Department Care Team (Late st Contact Info) Description 02/20/2026 8:00 AM CDT Lab [facility] [address] [place] [address] [facility]/Ancillary 03/03/2026 9:00 AM CDT [facility] [place] [address] [place] [phone] Ronal aGma MD #[address] [address] Health Maintenance Due Date Last Done Comments Hepatitis C Virus (HCV) Screening 1950 TdaP Immunization 1950 Hepatitis B Immunization (1 of 3 - Risk 3-dose series) 2009 Medicare Initial AWV [id number] 08/07/2015 Diabetes: Eye Exam 11/19/2025 11/19/2024, 1 12/22/2021, 08/19/2022, Additional history exists SARS-COV-2 Immunization ( season) 2026 07/26/2025, 07/26/2025, 08/02/2024, Additional history exists Diabetes: Hemoglobin A1c 02/20/2026 025, 01/31/2025, 06/12/2024, Additional history exists Diabetes: Foot Exam 02/27/2026 02/27/2025, 3 Diabetes: Nephropathy Screening 08/22/2026 08/22/2025, 01/31/2025, 06/12/2024, Additional history exists Pneumococcal Immunization (50+ years) Completed 10/01/2015, 10/01/2015, 09/16/2015, Additional history exists Pneumococcal Immunization Combined Discontinued 10/01/2015, 10/01/2015, 09/16/2015, Additional history exists Colonoscopy Discontinued 04/13/2016 Colorectal Cancer Screening Discontinued Respiratory Syncytial Virus (RSV) Immunization (Adult) Completed 09/05/2023 Zoster Immunization Completed 11/11/2023, 3 Influenza Immunization Completed 5, 07/16/2024, 07/26/2023, Additional history exists Cologuard Discontinued Human Papillomavirus (HPV) Immunization Aged Out No longer eligible based on patient's age to complete this topic Immunochemical Fecal Occult Blood Discontinued Meningococcal Immunization (ACWY) Aged Out No longer eligible based on patient's age to complete this topic Rotavirus Immunization Aged Out No lo nger eligible based on patient's age to complete this topic Procedures Procedure Name Priority Date/Time Associated Diagnosis Comments CBC WITH AUTO DIFFERENTIAL Routine 08/22/2025 8:00 AM CDT Primary hypertension Pure hypercholesterolemia Type 2 diabetes mellitus with stage 1 chronic kidney disease, without long-term current use of insulin THYROID SCREEN WITH REFLEX Routine 08/22/2025 8:00 AM CDT Primary hypertension Pure hypercholesterolemia Type 2 diabetes mellitus with stage 1 chronic kidney disease, without long-term current use of insulin COMPLETE BLOOD COUNT (CBC) WITH DIFF Routine 08/22/2025 8:00 AM CDT Primary hypertension Pure hypercholesterolemia Type 2 diabetes mellitus with stage 1 chronic kidney disease, without long-term current use of insulin THYROID SCREEN WITH REFLEX Routine 08/22/2025 8:00 AM CDT Primary hypertension Pure hypercholesterolemia Type 2 diabetes mellitus with stage 1 chronic kidney disease, without long-term current use of insulin LIPID PANEL Routine 08/22/2025 8:00 AM CDT Type 2 diabetes mellitus without complication, without long-term current use of insulin Essential hypertension Pure hypercholesterolemia CMP (COMPREHENSIVE METABOLIC PANEL) Routine 08/22/2025 8:00 AM CDT Type 2 diabetes mellitus without complication, without long-term current use of insulin Essential hypertension Pure hypercholesterolemia HEMOGLOBIN A1C W/ ESTIMATED GLUCOSE Routine 08/22/2025 8:00 AM CDT Type 2 diabetes mellitus without complication, without long-term current use of insulin Essential hypertension Pure hypercholesterolemia HM DILATED EYE EXAM 11/19/2024 12:00 AM BLEMISH REMOVER from Last 3 Months or Most Recently Relevant to Health Maintenance Results * THYROID SCREEN WITH REFLEX (08/22/2025 8:00 AM CDT) TSH 0.804 0.300 - 5.000 mIU/L 08/22/2025 1:13 PM CDT [facility] Blood Venipuncture / Unknown 08/22/2025 8:00 AM CDT 08/22/2025 8:00 AM CDT us Ronal Gama MD CHEMISTRY ORDERABLES Final Re sult Performing Organization Address [facility] Co de Phone Number [facility] [address] [place] [address] * HEMOGLOBIN A1C W/ ESTIMATED GLUCOSE (08/22/2025 8:00 AM CDT) Pathologist [facility] HGB-A1C 5.5 4.0 - 6.0 % 08/22/2025 1:07 PM CDT [facility] Est Average Glucose 111.2 mg/dL 08/22/2025 1:07 PM CDT [facility] Blood Venipuncture / Unknown 08/22/2025 8:00 AM CDT 08/22/2025 8:00 AM CDT Narrative [facility] - 08/22/2025 1:07 PM CDT HEMOGLOBIN A1C: DIABETIC PATIENTS: WELL-CONTROLLED: 6.2 - 7.0 INTERMEDIATE WELL-CONTROLLED: 7.0 - 9.0 POORLY-CONTROLLED: >9.0 Specimens containing greater than 5% of Hemoglobin F may result in lower than expected % HbA1C results. Ronal Gama MD CHEMISTRY ORDERABLES Final Re sult Performing Organization Address [facility] de Phone Number [facility] [address] [place] [address] * (ABNORMAL) CBC WITH AUTO DIFFERENTIAL (08/22/2025 8:00 AM CDT) WBC 6.68 4.00 - 12.00 10(3)/mcL 08/22/2025 12:31 PM CDT [facility] RBC 4.41 4.40 - 5.80 10(6)/mcL 08/22/2025 12:31 PM CDT [facility] HEMOGLOBIN (HGB) 14.0 13.0 - 16.5 g/dL 08/22/2025 12:31 PM CDT [facility] HEMATOCRIT (HCT) 42.7 38.0 - 50.0 % 08/22/2025 12:31 PM CDT [facility] MCV 96.8(H) 82.0 - 96.0 fL 08/22/2025 12:31 PM CDT [facility] MCH 31.7 26.0 - 32.0 pg 08/22/2025 12:31 PM CDT [facility] MCHC 32.8 31.0 - 36.0 g/dL 08/22/2025 12:31 PM CDT [facility] PLATELET COUNT 227 140 - 440 10(3)/mcL 08/22/2025 12:31 PM CDT [facility] RDW 12.6 11.8 - 15.5 % 08/22/2025 12:31 PM CDT [facility] MPV 10.5 8.0 - 12.6 fL 08/22/2025 12:31 PM CDT [facility] NEUTROPHILS 69.1(H) 40.0 - 68.0 % 08/22/2025 12:31 PM CDT [facility] LYMPHOCYTES 20.8 19.0 - 49.0 % 08/22/2025 12:31 PM CDT [facility] MONOCYTES 7.6 3.0 - 13.0 % 08/22/2025 12:31 PM CDT [facility] EOSINOPHILS 1.5 0.0 - 8.0 % 08/22/2025 12:31 PM CDT [facility] BASOPHILS 0.7 0.0 - 1.0 % 08/22/2025 12:31 PM CDT [facility] IMMATURE GRANULOCYTE 0.3 0.0 - 0.4 % 08/22/2025 12:31 PM CDT [facility] ABSOLUTE NEUTROPHILS 4.61 1.40 - 5.30 10(3)/mcL 08/22/2025 12:31 PM CDT [facility] ABSOLUTE LYMPHOCYTES 1.39 0.90 - 3.30 10(3)/mcL 08/22/2025 12:31 PM CDT [facility] ABSOLUTE MONOCYTES 0.51 0.10 - 0.90 10(3)/mcL 08/22/2025 12:31 PM CDT [facility] ABSOLUTE EOSINOPHIL 0.10 0.00 - 0.50 10(3)/mcL 08/22/2025 12:31 PM CDT [facility] ABSOLUTE BASOPHILS 0.05 0.00 - 0.10 10(3)/mcL 08/22/2025 12:31 PM CDT [facility] ABSOLUTE IMMATURE GRANULOCYTE 0.02 0.00 - 0.03 10 (3) mcL. 08/22/2025 12:31 PM CDT [facility] NRBC PER 100 WBC 0 08/22/20 12:31 PM CDT [facility] Blood Venipuncture / Unknown 08/22/2025 8:00 AM CDT 08/22/2025 8:00 AM CDT us Ronal Gama MD HEMATOLOGY ORDERABLES Final R esult [facility] [address] [place] [address] * LIPID PANEL (08/22/2025 8:00 AM CDT) CHOLESTEROL 103 <200 mg/dL 08/22/2025 12:58 PM CDT [facility] TRIGLYCERIDES 68 <150 mg/dL 08/22/2025 12:58 PM CDT [facility] HDL CHOLESTEROL 41 >40 mg/dL 12:58 PM CDT [facility] LDL 48 <130 mg/dL 08/22/2025 12:58 PM CDT [facility] VLDL 14 10 - 50 mg/dL 08/22/2025 12:58 PM CDT [facility] CHOL/HDL RATIO 2.5 0.0 - 4.4 08/22/2025 12:58 PM CDT [facility] NON-HDL CHOLESTEROL 62 <130 mg/dL 08/22/2025 12:58 PM CDT [facility] IS THE PATIENT REQUIRED TO BE FASTING? No 08/22/2025 12:58 PM CDT [facility] Blood Venipuncture / Unknown 08/22/2025 8:00 AM CDT 08/22/2025 8:00 AM CDT us Ronal Gama MD CHEMISTRY ORDERABLES Final Re sult [facility] [address] [place] [address] * (ABNORMAL) CMP (COMPREHENSIVE METABOLIC PANEL) (08/22/2025 8:00 AM CDT) SODIUM 141 136 - 145 mmol/L 08/22/2025 12:58 PM CDT [facility] POTASSIUM 3.8 3.5 - 5.1 mmol/L 08/22/2025 12:58 PM CDT [facility] CHLORIDE 107 98 - 107 mmol/L 08/22/2025 12:58 PM CDT [facility] CO2, VENOUS 25 22 - 30 mmol/L 08/22/2025 12:58 PM CDT [facility] ANION GAP 12.8 <18.0 mmol/L 08/22/2025 12:58 PM CDT [facility] GLUCOSE 136(H) 70 - 99 mg/dL 08/22/2025 12:58 PM CDT [facility] BUN 13 8 - 26 mg/dL 08/22/2025 12:58 PM CDT [facility] CREATININE, BLOOD 0.83 0.70 - 1.30 mg/dL 08/22/2025 12:58 PM CDT [facility] BUN/CREATININE RATIO 16 12 - 20 ratio 08/22/2025 12:58 PM CDT [facility] TOTAL PROTEIN 6.5 6.0 - 8.0 g/dL 08/22/2025 12:58 PM CDT [facility] ALBUMIN 3.8 3.5 - 5.0 g/dL 08/22/2025 12:58 PM CDT [facility] A/G RATIO 1.4 1.0 - 2.2 08/22/2025 12:58 PM CDT [facility] CALCIUM 9.3 8.7 - 10.5 mg/dL 08/22/2025 12:58 PM CDT [facility] T BILI 0.4 0.2 - 1.2 mg/dL 08/22/2025 12:58 PM CDT [facility] SGOT (AST) 28 <43 U/L 08/22/2025 12:58 PM T [facility] SGPT (ALT) 31 <56 U/L 08/22/2025 12:58 PM CDT [facility] ALKALINE PHOSPHATASE 61 40 - 150 U/L 08/22/2025 12:58 PM [facility] IS THE PATIENT REQUIRED TO BE FASTING? No 08/22/2025 12:58 PM T [facility] GFR, ESTIMATED >60 >=60 08/22/2025 12:58 PM T [facility] Comment: Creatinine Clearance is the preferred criteria for selecting drug dose adjustments in renally impaired patients. The GFR is provided as additional pertinent clinical information. GFR is reported in mL/min/1.73 sq m. Calculation based on the 2020 Chronic Kidney Disease Epidemiology Collaboration (CKD-EPI) equation refit without adjustment for race. GFR, EST. >60 >=60 025 12:58 PM [facility] Comment: Creatinine Clearance is the preferred criteria for selecting drug dose adjustments in renally impaired patients. The GFR is provided as additional pertinent clinical information. GFR is reported in mL/min/1.73 sq m. Calculation based on the 2009 Chronic Kidney Disease Epidemiology Collaboration (CKD-EPI). GFR, EST. NONAFRICAN >60 >=60 08/22/2025 12:58 PM T [facility] Comment: Creatinine Clearance is the preferred criteria for selecting drug dose adjustments in renally impaired patients. The GFR is provided as additional pertinent clinical information. GFR is reported in mL/min/1.73 sq m. Calculation based on the 2009 Chronic Kidney Disease Epidemiology Collaboration (CKD-EPI). Blood Venipuncture / Unknown 08/22/2025 8:00 AM CDT 08/22/2025 8:00 AM CDT us Ronal Gama MD CHEMISTRY ORDERABLES Final Re sult Performing Organization Address City/[facility]/ZIP Co de Phone Number [facility] [address] [place] [address] * DILATED EYE EXAM (11/19/2024 12:00 AM BLEMISH REMOVER) 11/19/2024 us Provider Scan PROCEDURE/MINOR SURGICAL ORDERAB LES Final Result Performing Organization Address City/[facility]/ZIP Co de Phone Number SCAN from Last 3 Months or Most Recently Relevant to Health Maintenance Insurance MEDICARE [facility] Care Teams Security Guard Relationship Specialty Start Date End Date Ronal Gama MD #2 [facility] [address] [place] [address] PCP - General Family Medicine 09/24/15 Vinnie Mina DO [address] [address] Consulting Physician Gastroenterology 11/23/18
--- OUTSIDE RECORDS SUMMARY | 2025-08-30 00:38 | XMS_ITS | Encounter Summary ---
Author Organization [facility] Address [address] [place] [address] Phone Care Team Providers Care Shop Manager Name Role Phone Ronal Gama MD Primary Care Provider Vinnie Mina DO Unavailable [phone] Reason for Visit * Reason Comments Medication Refill Encounter Details Date Type Department Care Team (Late st Contact Info) Description 08/02/2021 Refill [facility] - Family [facility] [address] [place] [address] Ronal Gama MD #[address] [address] Medication Refill Social History Tobacco Use Types [...] Start Date Job End Date retired from [employer]. Not on file Not o n file Not on file COVID-19 Exposure Response Date Recorded In the last month, have you been in contact with someone who was confirmed or suspected to have Coronavirus / COVID-19? No / Unsure 08/04/2021 6:50 AM CDT documented as of this encounter Miscellaneous Notes * Telephone Encounter - Ronal Gama MD - 08/03/2021 1:39 PM CDT Prescription approved. Please call in * Telephone Encounter - Winifred Muir RN - 08/03/2021 1:39 PM CDT Medication failed the protocol, provider to review and approve the medication order if appropriate. Requested Prescriptions Pending Prescriptions Disp Refills metFORMIN (GLUCOPHAGE) 1000 MG Tablet [Pharmacy Med Name: METFORMIN 1000MG TABLETS] 180 Tablet 1 Sig: TAKE 1 TABLET BY MOUTH TWICE DAILY Biguanides Protocol Failed - 08/02/2021 12:23 PM Failed - HgA1C on record in past 6 months HGB-A1C Date Value Ref Range Status 12/17/2020 6.3 (H) 4.0 - 6.0 % Final Failed - GFR on record in past 6 months GFR, EST. NONAFRICAN Date Value Ref Range Status 12/17/2020 >60 >=60 Final Passed - Visit with relevant provider in past 6 months or upcoming 90 days Recent Visits Date Type Provider Dept 04/08/21 Office Visit Ronal Gama MD [facility] [place] Showing recent visits within past 182 days and meeting all other requirements Future Appointments Date Type Provider Dept 08/10/21 Appointment Ronal Gama MD [facility] [place] Showing future appointments within next 90 days and meeting all other requirements Olmesartan Medoxomil 40 MG Tablet [Pharmacy Med Name: OLMESARTAN MEDOXOMIL 40MG TABLETS] 90 Tablet 1 Sig: Take 1 Tablet by mouth daily. ARB Protocol Passed - 08/02/2021 12:23 PM Passed - Serum potassium on record in past 12 months POTASSIUM Date Value Ref Range Status 12/17/2020 4.5 3.5 - 5.1 mmol/L Final Passed - BP on record in the past year Clinician-entered: BP Readings from Last 3 Encounters: 04/08/21 104/62 12/24/20 118/68 08/22/20 114/62 Patient-entered: No data recorded Passed - Visit with relevant provider in past year or upcoming 90 days Recent Visits Date Type Provider Dept 04/08/21 Office Visit Ronal Gama MD [facility] 12/24/20 Office Visit Ronal Gama MD [facility] 08/22/20 Office Visit Ronal Gama MD [facility] [place] Showing recent visits within past 365 days and meeting all other requirements Future Appointments Date Type Provider Dept 08/10/21 Appointment Ronal Gama MD [facility] [place] Showing future appointments within next 90 days and meeting all other requirements Passed - GFR on record in past 12 months GFR, EST. NONAFRICAN Date Value Ref Range Status 12/17/2020 >60 >=60 Final documented in this encounter Plan of Treatment Upcoming Encounters Date Type Department Care Team (Late st Contact Info) Description 02/20/2026 8:00 AM CDT Lab [facility] #[address] [address] [facility] Lab/Ancillary 03/03/2026 9:00 AM CDT [facility] [place] [facility] [place] [place] [address] Ronal Gama MD #[address] [address] documented as of this encounter Visit Diagnoses Not on filedocumented in this encounter Additional Health Concerns Assessment Noted Time PHQ-9 Depression Total Score: 0 12/24/19 21 7:59 AM INCENDIARIES SUPERVISOR documented as of this encounter Care Teams Shop Manager Relationship Specialty Start Date End Date Ronal Gama MD [address] [place] [address] [place] [address] PCP - General Family Medicine 09/24/15 Vinnie Mina DO #[address] [address] Consulting Physician Gastroenterology 11/23/18 documented as of this encounter
--- OUTSIDE RECORDS SUMMARY | 2025-08-30 00:38 | XMS_ITS | Encounter Summary ---
Author Organization [facility] Address [address] [place] [address] Phone Care Team Providers Care Operator Cavity Pump Name Role Phone Ronal Gama MD Primary Care Provider Vinnie Mina DO Unavailable Reason for Visit * Reason Comments Medication Refill Encounter Details Date Type Department Care Team (Late st Contact Info) Description 02/04/2024 Refill [facility] - Family [facility] [address] [place] [address] Ronal Gama MD [address] [address] Medication Refill Social History Tobacco Use Types Packs/Day Years Used Date Smoking Tobacco: Never Smokeless Tobacco: Never Alcohol Use Standard Drinks/Week Comments Yes 0 (1 standard drink = 0.6 oz pur e alcohol) weekends 2-3 drinks [facility] Utilities Answer Date Recorded In the past 12 months has [employer] electric, gas, oil, or water company threatened [...] How often do you attend chur or taoism services? Never 12/11/2023 Do you belong to any clubs o r organizations such as hinduism groups, unions, fraternal or athletic groups, or [...] Total Score - Questions 1-9 0 04/2024 [facility] - Occupational Stress [...] place to sleep or slept in a mcfp (including now)? No 12/11/2023 Education Answer Date Recorded What is the highest level of school you have completed or the highest degree you have received? Master's degree (e.g., MA, MS, Scott, MEd, RN DOCUMENT IMPROVEMENT, COOKIE) 06/22/2023 Sex and Gender Information Value Date Recorded Sex Assigned at Male 06/21/2023 10:36 AM CDT Legal Sex Male 10:00 PM CDT Gender Identity Male 06/21/2023 10:36 AM CDT Sexual Orientation Not on file Occupation Industry Job Start Date Job End Date retired from [employer]. Not on file Not o n file Not on file documented as of this encounter Miscellaneous Notes * Telephone Encounter - Winifred Muir RN - 02/07/2024 8:05 AM CDT Medication(s) refilled and signed per [facility] Chronic Medication Refill Standing Order for Pediatricand Adult Patients. Requested Prescriptions Pending Prescriptions Disp Refills carvedilol (COREG) 25 MG Tablet [Pharmacy Med Name: CARVEDILOL 25MG TABLETS] 90 Tablet 1 Sig: TAKE 1 TABLET BY MOUTH EVERY DAY Beta-Blockers Protocol Passed - 02/04/2024 3:39 PM Passed - BP on record in the past year Clinician-entered: BP Readings from Last 3 Encounters: 12/13/23 108/60 06/22/23 114/68 01/31/23 122/62 Patient-entered: No data recorded Passed - Visit with relevant provider in past 12 months or upcoming 90 days Recent Visits Date Type Provider Dept 12/13/23 Office Visit Ronal Gama MD [facility] 06/22/23 Office Visit Ronal Gama MD [facility] Showing recent visits within past 365 days and meeting all other requirements Future Appointments No visits were found meeting these conditions. Showing future appointments within next 90 days and meeting all other requirements documented in this encounter Plan of Treatment Upcoming Encounters Date Type Department Care Team (Late st Contact Info) Description 02/20/2026 8:00 AM CDT Lab [facility] #[address] [address] 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
--- OUTSIDE RECORDS SUMMARY | 2025-08-30 00:38 | XMS_ITS | Encounter Summary ---
Author Organization [facility] Address [address] [place] [address] Phone Care Team Providers Care Oyster Grower Name Role Phone Ronal Gama MD Primary Care Provider [phone] Vinnie Mina DO Unavailable [phone] Reason for Visit * Reason Comments Medication Refill Encounter Details Date Type Department Care Team (Late st Contact Info) Description 06/15/[address] [facility] Medical Group - Family [facility] [address] [place] [address] Ronal Gama MD #[address] [address] Medication Refill Social History Tobacco Use Types [...] Start Date Job End Date retired from [employer]. Not on file Not o n file Not on file COVID-19 Exposure Response Date Recorded In the last 10 days, have yo u been in contact with someone who was confirmed or suspected to have Coronavirus/COVID-19? No / Unsure 05/25/2023 10:26 AM CDT documented as of this encounter Miscellaneous Notes * Telephone Encounter - Olga Ramesh RN - 06/15/2023 7:39 AM CDT Per nursing clinical judgement, provider to review and approve the medication(s) order(s) if appropriate. Requiring an override Requested Prescriptions Pending Prescriptions Disp Refills Olmesartan Medoxomil 40 MG Tablet [Pharmacy Med Name: OLMESARTAN MEDOXOMIL 40MG TABLETS] 90 Tablet 1 Sig: TAKE 1 TABLET BY MOUTH DAILY ARB Protocol Passed - 06/15/2023 5:57 AM Passed - Serum potassium on record in past 12 months POTASSIUM Date Value Ref Range Status 01/24/2023 4.1 3.5 - 5.1 mmol/L Final Passed - BP on record in the past year Clinician-entered: BP Readings from Last 3 Encounters: 01/31/23 122/62 08/24/22 116/58 04/28/22 126/64 Patient-entered: No data recorded Passed - Visit with relevant provider in past year or upcoming 90 days Recent Visits Date Type Provider Dept 01/31/23 Office Visit Ronal Gama MD [facility] 08/24/22 Office Visit Ronal Gama MD [facility] Showing recent visits within past 365 days and meeting all other requirements Future Appointments Date Type Provider Dept 06/22/23 Appointment Ronal Gama MD [facility] Showing future appointments within next 90 days and meeting all other requirements Passed - GFR on record in past 12 months GFR, EST. NONAFRICAN Date Value Ref Range Status 01/24/2023 >60 >=60 Final metFORMIN (GLUCOPHAGE) 1000 MG Tablet [Pharmacy Med Name: METFORMIN 1000MG TABLETS] 180 Tablet 1 Sig: TAKE 1 TABLET BY MOUTH TWICE DAILY Biguanides Protocol Passed - 06/15/2023 5:57 AM Passed - Visit with relevant provider in past 6 months or upcoming 90 days Recent Visits Date Type Provider Dept 01/31/23 Office Visit Ronal Gama MD [facility] Showing recent visits within past 182 days and meeting all other requirements Future Appointments Date Type Provider Dept 06/22/23 Appointment Ronal Gama MD [facility] Showing future appointments within next 90 days and meeting all other requirements Passed - HgA1C on record in past 6 months HGB-A1C Date Value Ref Range Status 05/26/2023 5.9 4.0 - 6.0 % Final Passed - GFR on record in past 6 months GFR, EST. NONAFRICAN Date Value Ref Range Status 01/24/2023 >60 >=60 Final glimepiride (AMARYL) 2 MG Tablet [Pharmacy Med Name: GLIMEPIRIDE 2MG TABLETS] 90 Tablet 1 Sig: TAKE 1 TABLET BY MOUTH EVERY MORNING Sulfonylureas Protocol Passed - 06/15/2023 5:57 AM Passed - Visit with relevant provider in past 6 months or upcoming 90 days Recent Visits Date Type Provider Dept 01/31/23 Office Visit Ronal Gama MD [facility] Showing recent visits within past 182 days and meeting all other requirements Future Appointments Date Type Provider Dept 06/22/23 Appointment Ronal Gama MD [facility] Showing future appointments within next 90 days and meeting all other requirements Passed - HgA1C on record in past 6 months HGB-A1C Date Value Ref Range Status 05/26/2023 5.9 4.0 - 6.0 % Final Passed - GFR on record in past 6 months GFR, EST. NONAFRICAN Date Value Ref Range Status 01/24/2023 >60 >=60 Final carvedilol (COREG) 25 MG Tablet [Pharmacy Med Name: CARVEDILOL 25MG TABLETS] 90 Tablet 1 Sig: TAKE 1 TABLET BY MOUTH EVERY DAY Beta-Blockers Protocol Passed - 06/15/2023 5:57 AM Passed - BP on record in the past year Clinician-entered: BP Readings from Last 3 Encounters: 01/31/23 122/62 08/24/22 116/58 04/28/22 126/64 Patient-entered: No data recorded Passed - Visit with relevant provider in past 12 months or upcoming 90 days Recent Visits Date Type Provider Dept 01/31/23 Office Visit Ronal Gama MD [facility] 08/24/22 Office Visit Ronal Gama MD [facility] [place] Showing recent visits within past 365 days and meeting all other requirements Future Appointments Date Type Provider Dept 06/22/23 Appointment Ronal Gama MD [facility] Showing future appointments within next 90 days and meeting all other requirements documented in this encounter Plan of Treatment Upcoming Encounters Date Type Department Care Team (Late st Contact Info) Description 02/20/2026 8:00 AM CDT Lab [facility] [address] [address] [facility] 03/03/2026 9:00 AM CDT [facility] - [place] [address] [place] [address] Ronal Gama MD [address] [place] [address] documented as of this encounter Visit Diagnoses Not on filedocumented in this encounter Additional Health Concerns Assessment Noted Time PHQ-9 Depression Total Score: 0 12/24/19 

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
--- OUTSIDE RECORDS SUMMARY | 2025-08-30 00:38 | XMS_ITS | Encounter Summary ---
Author Organization [facility] Address [address] [place] [address] Phone Care Team Providers Care Attorney Lawyer Name Role Phone Ronal Gama MD Primary Care Provider [phone] Vinnie Mina DO Unavailable [phone] Reason for Visit * Reason Comments Medication Refill Encounter Details Date Type Department Care Team (Late st Contact Info) Description 06/01/2024 Refill [facility] - [facility] [address] [place] [address] Ronal Gama MD [address] [address] Medication Refill Social History Tobacco Use Types Packs/Day Years Used Date Smoking Tobacco: Never Smokeless Tobacco: Never Alcohol Use Standard Drinks/Week Comments Yes 0 (1 standard drink = 0.6 oz pur e alcohol) weekends 2-3 drinks [facility] Utilities Answer Date Recorded In the past 12 months has [employer] electric, gas, oil, or water company threatened [...] How often do you attend chur or buddhist services? Never 12/11/2023 Do you belong to [...] Total Score - Questions 1-9 0 04/2024 [facility] - Occupational Stress [...] place to sleep or slept in a group home (including now)? No 12/11/2023 Education Answer Date Recorded What is the highest level of school you have completed or the highest degree you have received? Master's degree (e.g., MA, MS, Scott, MEd, [employer], COOKIE) 06/22/2023 Sex and Gender Information Value Date Recorded Sex Assigned at Male 06/21/2023 10:36 AM CDT Legal Sex Male 10:00 PM CDT Gender Identity Male 06/21/2023 10:36 AM CDT Sexual Orientation Not on file Occupation Industry Job Start Date Job End Date retired from [employer]. Not on file Not o n file Not on file documented as of this encounter Miscellaneous Notes * Telephone Encounter - Winifred Muir RN - 06/01/2024 10:01 AM CDT Medication failed the protocol, provider to review and approve the medication order if appropriate. Requested Prescriptions Pending Prescriptions Disp Refills metFORMIN (GLUCOPHAGE) 1000 MG Tablet [Pharmacy Med Name: METFORMIN 1000MG TABLETS] 180 Tablet 1 Sig: TAKE 1 TABLET BY MOUTH TWICE DAILY Biguanides Protocol Failed - 06/01/2024 5:55 AM Failed - HgA1C on record in past 6 months HGB-A1C Date Value Ref Range Status 11/22/2023 5.7 4.0 - 6.0 % Final Failed - GFR on record in past 6 months GFR, EST. NONAFRICAN Date Value Ref Range Status 11/22/2023 >60 >=60 Final Passed - Visit with relevant provider in past 6 months or upcoming 90 days Recent Visits Date Type Provider Dept 12/13/23 Office Visit Ronal Gama MD [facility] Showing recent visits within past 182 days and meeting all other requirements Future Appointments Date Type Provider Dept 06/19/24 Appointment Ronal Gama MD [facility] Showing future appointments within next 90 days and meeting all other requirements Olmesartan Medoxomil 40 MG Tablet [Pharmacy Med Name: OLMESARTAN MEDOXOMIL 40MG TABLETS] 90 Tablet 1 Sig: Take 1 Tablet by mouth daily. ARB Protocol Passed - 06/01/2024 5:55 AM Passed - Serum potassium on record in past 12 months POTASSIUM Date Value Ref Range Status 11/22/2023 3.9 3.5 - 5.1 mmol/L Final Passed - BP on record in the past year Clinician-entered: BP Readings from Last 3 Encounters: 12/13/23 108/60 06/22/23 114/68 01/31/23 122/62 Patient-entered: No data recorded Passed - Visit with relevant provider in past year or upcoming 90 days Recent Visits Date Type Provider Dept 12/13/23 Office Visit Ronal Gama MD [facility] 06/22/23 Office Visit Ronal Gama MD [facility] Showing recent visits within past 365 days and meeting all other requirements Future Appointments Date Type Provider Dept 06/19/24 Appointment Ronal Gama MD [facility] Showing future appointments within next 90 days and meeting all other requirements Passed - GFR on record in past 12 months GFR, EST. NONAFRICAN Date Value Ref Range Status 11/22/2023 >60 >=60 Final glimepiride (AMARYL) 2 MG Tablet [Pharmacy Med Name: GLIMEPIRIDE 2MG TABLETS] 90 Tablet 1 Sig: Take 1 Tablet by mouth every morning. Sulfonylureas Protocol Failed - 06/01/2024 5:55 AM Failed - HgA1C on record in past 6 months HGB-A1C Date Value Ref Range Status 11/22/2023 5.7 4.0 - 6.0 % Final Failed - GFR on record in past 6 months GFR, EST. NONAFRICAN Date Value Ref Range Status 11/22/2023 >60 >=60 Final Passed - Visit with relevant provider in past 6 months or upcoming 90 days Recent Visits Date Type Provider Dept 12/13/23 Office Visit Ronal Gama MD [facility] Showing recent visits within past 182 days and meeting all other requirements Future Appointments Date Type Provider Dept 06/19/24 Appointment Ronal Gama MD [facility] Showing future appointments within next 90 days and meeting all other requirements documented in this encounter Plan of Treatment Upcoming Encounters Date Type Department Care Team (Late st Contact Info) Description 02/20/2026 8:00 AM CDT Lab [facility] [address] [address] [facility] 03/03/2026 9:00 AM CDT [facility] - [place] [address] [facility] [place] [address] Ronal Gama MD [address] [place] [address] documented as of this encounter Visit Diagnoses Not on filedocumented in this encounter Additional Health Concerns Assessment Noted Time PHQ-9 Depression Total Score: 0 12/13/19 24 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
--- OUTSIDE RECORDS SUMMARY | 2025-08-30 00:38 | XMS_ITS | Encounter Summary ---
Author Organization [facility] Address [address] [place] [address] Phone Care Team Providers Care Test Fixture Designer Name Role Phone Ronal Gama MD Primary Care Provider Vinnie Mina DO Unavailable [phone] Reason for Visit * Reason Comments Medication Refill Encounter Details Date Type Department Care Team (Late st Contact Info) Description 12/17/2023 Refill [facility] - Family [facility] [address] [place] [address] Ronal Gama MD [address] [address] Medication Refill Social History Tobacco Use Types Packs/Day Years Used Date Smoking Tobacco: Never Smokeless Tobacco: Never Alcohol Use Standard Drinks/Week Comments Yes 0 (1 standard drink = 0.6 oz pur e alcohol) weekends 2-3 drinks [facility] Utilities Answer Date Recorded In the past 12 months has [employer] electric, gas, oil, or water company threatened [...] How often do you attend chur or taoist services? Never 12/11/2023 Do you belong to any clubs o r organizations such as orthodox groups, unions, fraternal or athletic groups, or [...] Total Score - Questions 1-9 0 04/2024 [facility] - [...] in a halfway (including now)? No 12/11/2023 Education Answer Date Recorded What is the highest level of school you have completed or the highest degree you have received? Master's degree (e.g., JEANCARLOS, MS, Scott, Radha, [employer], COOKIE) 06/22/2023 Sex and Gender Information Value Date Recorded Sex Assigned at Male 06/21/2023 10:36 AM CDT Legal Sex Male 10:00 PM CDT Gender Identity Male 06/21/2023 10:36 AM CDT Sexual Orientation Not on file Occupation Industry Job Start Date Job End Date retired from [employer]. Not on file Not o n file Not on file documented as of this encounter Miscellaneous Notes * Telephone Encounter - Lakshmi Eckert RN - 12/17/2023 8:53 AM DRY CLEANING MACHINE OPERATOR Medication warning Per nursing clinical judgement, provider to review and approve the medication(s) order(s) if appropriate. Requested Prescriptions Pending Prescriptions Disp Refills metFORMIN (GLUCOPHAGE) 1000 MG Tablet [Pharmacy Med Name: METFORMIN 1000MG TABLETS] 180 Tablet 1 Sig: TAKE 1 TABLET BY MOUTH TWICE DAILY Biguanides Protocol Passed - 12/17/2023 5:56 AM Passed - Visit with relevant provider [...] 11/22/2023 5.7 4.0 - 6.0 % Final Passed - GFR on record in past 6 months GFR, EST. NONAFRICAN Date Value Ref Range Status 11/22/2023 >60 >=60 Final CLEANING MACHINE OPERATOR documented in this encounter Plan of Treatment Upcoming Encounters Date Type Department Care Team (Late st Contact Info) Description 02/20/2026 8:00 AM CDT Lab [facility] [address] [address] [facility] Lab/Ancillary 03/03/2026 9:00 AM CDT Office Visit [facility] - [place] [address] [place] [address] Ronal Gama MD #[address] [address] documented as of this encounter Visit Diagnoses Not on filedocumented in this encounter Additional Health Concerns Assessment Noted Time PHQ-9 Depression Total Score: 0 12/13/19 24 7:34 AM DRY CLEANING MACHINE OPERATOR documented as of this encounter Care Teams Test Fixture Designer Relationship Specialty Start Date End Date Ronal Gama MD [address] [place] [address] PCP - General Family Medicine 09/24/15 Vinnie Mina DO #[address] [place] [address] Consulting Physician Gastroenterology 11/23/18 documented as of this encounter
--- OUTSIDE RECORDS SUMMARY | 2025-08-30 00:38 | XMS_ITS | Clinical Summary ---
Author Organization [facility] Address [address] [place] [address] Care Team Providers Care Carpet Mechanic Name Role Phone Unavailable Primary Care Provider Unavailabl e Source Comments [facility],non-owned Affiliates and Associated Physician Practices is amultiple site organization consisting of ambulatory clinics and hospital sitesin [place], [place], [place] and [place]. This disclosure is being madepursuant to the Care Everywhere program and may not contain all information available regarding this patient. 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 Gender Identity Not on file Sexual Orientation Not on file Plan of Treatment Health Maintenance Due Date Last Done Comments MEDICARE AWV 12 MONTHS 1950 HEPATITIS C SCREENING 08/08/1967 DTAP/TDAP/TD VACCINES (1 - Tdap) 1968 PNEUMOCOCCAL VACCINE 50+ (1 of 1 - PCV) 1999 ZOSTER VACCINE (1 of 2) 1999 Respiratory Syncytial Virus (RSV) Vaccine Pt: or over 60 yrs (1 - 1-dose 75+ series) 2024 DEPRESSION SCREENING 11/07/2024 COVID-19 VACCINE ( - 2023-2 5 season) 2025 INFLUENZA VACCINE (#1) 2025 HEPATITIS B VACCINE Aged Out No longe r eligible based on patient's age to complete this topic HIB VACCINE Aged Out No longer eligi ble based on patient's age to complete this topic HPV VACCINE Aged Out No longer eligi ble based on patient's age to complete this topic MENINGOCOCCAL (Group B) VACC INE SHARED DECISION-MAKING Aged Out No longer eligibl e based on patient's age to complete this topic MENINGOCOCCAL GROUPS A/C/Y/W VACCINE Aged Out No longer eligible b ased on patient's age to complete this topic Insurance MEDICARE [facility]
[2025-08-30 00:42] VITALS: BP 134/67; PULSE 56; RESP 20; TEMP 36.3; O2SAT 99
[2025-08-30 00:45] VITALS: BP 134/67; PULSE 56; RESP 20; TEMP 36.3; O2SAT 99
--- NOTE | 2025-08-30 01:39 | ED.BACK ---
HPI - Back Pain/Injury General Chief Complaint: Back Pain/Injury Stated Complaint: right thigh pain Time Seen by Provider: 08/30/25 00:48 Source: patient Mode of arrival: ambulatory Limitations: no limitations History of Present Illness HPI Narrative: Patient is a 75-year-old male who presents the ED with report of right lower back pain radiating to his right lower extremity. Patient reports pain has been ongoing for the past 3 days. Slightly improved in the mornings, but worsens throughout the day. Is much worse at night, causing difficulty sleeping. Pain begins in R lower back, radiates into hip and down anteiror R thigh. Reports occasional tingling in R leg, denies numbness or weakness. Denies saddle anesthesia. Denies bowel or bladder incontinence. Has not taken anything for pain. Denies difficulty urinating, hematuria. Denies abdominal pain. Related Data Home Medications ?Medication ?Instructions ?Recorded ?Confirmed ?Last Taken ?Type aspirin 325 mg tablet 325 mg PO DAILY 06/02/20 09/07/23 Unknown History atorvastatin 40 mg tablet 40 mg PO DAILY 06/02/20 09/07/23 Unknown History carvedilol 25 mg tablet 25 mg PO Q12H 06/02/20 09/07/23 Unknown History cyanocobalamin (vitamin B-12) 1,000 mcg PO DAILY 06/02/20 09/07/23 Unknown History 1,000 mcg tablet flaxseed oil 1,000 mg capsule 1,000 mg PO DAILY 06/02/20 09/07/23 Unknown History glimepiride 2 mg tablet 2 mg PO QAM 06/02/20 09/07/23 Unknown History lactobacillus combination no.8 3 3,000 mmu cells PO DAILY 06/02/20 09/07/23 Unknown History billion cell capsule (Adult Probiotic) metformin 1,000 mg tablet 1,000 mg PO BID 06/02/20 09/07/23 Unknown History olmesartan 40 mg tablet 40 mg PO DAILY 06/02/20 09/07/23 Unknown History dapagliflozin propanediol 5 mg 5 mg PO DAILY 07/08/22 09/07/23 Unknown History tablet (Farxiga) Allergies Allergy/AdvReac Type Severity Reaction Status Date / Time No Known Drug Allergies Allergy Unknown Unknown Verified 08/27/24 08:56 Review of Systems Review of Systems: All systems reviewed & are unremarkable except as noted in HPI. All systems reviewed & are unremarkable except as noted in HPI and below PMFSH Past Medical History Medical History Tendinopathy of rotator cuff Rotator cuff tear Diabetes Type II Vision abnormalities Left shoulder pain Family History Family History Unknown Diabetes mellitus Social History Social History Smoking status: Never smoker Alcohol intake: current Alcohol use details: occasionally Exam Narrative: GENERAL: Well appearing, well-nourished, non-toxic, in no acute distress. HEAD: Normocephalic, atraumatic. RESPIRATORY: Airway patent, respirations nonlabored. Clear to auscultation bilaterally, no rales, rhonchi, wheezing. CARDIOVASCULAR: Regular rate and rhythm without murmurs, rubs, or gallops. MUSCULOSKELETAL: Moves all extremities. No gross deformities. No midline lumbar spinal tenderness. TTP over R SI region, reproducing pain. No pain throughout RLE, no calf tenderness, sensation intact. Trace BLE edema, symmetric. SKIN: Warm, dry, normal color. NEURO: A&O X3. Speech clear. Cranial nerves II-XII grossly intact. Steady gait. No ataxic movements. PSYCHIATRIC: Appropriate mood and affect. Normal interaction. Course Vital Signs Vital signs: Vital Signs Temperature 97.3 F L 08/30/25 00:42 Pulse Rate 56 L 08/30/25 00:42 Respiratory Rate 20 08/30/25 00:42 Blood Pressure 134/67 08/30/25 00:42 Pulse Oximetry 99 08/30/25 00:42 Oxygen Delivery Room Air 08/30/25 00:42 Temperature 97.3 F L 08/30/25 00:45 Pulse Rate 56 L 08/30/25 00:45 Respiratory Rate 20 08/30/25 00:45 Blood Pressure 134/67 08/30/25 00:45 Pulse Oximetry 99 08/30/25 00:45 Oxygen Delivery Room Air 08/30/25 00:45 MDM - Back Pain/Injury MDM Narrative Medical decision making narrative: Patient?s pain is positional and localized to paraspinal muscles/R SI region without signs of cord compression or cauda equina. Normal neurologic exams. No red flag symptoms. No fever noted and no significant risk factors for osteomyelitis or spinal epidural abscess. No symptoms or signs to suggest pain is referred from abdominal or source. Distribution is classic for lumbar radiculopathy, sciatica. Patient denies any recent fall or injury. Pain is not constant. Not felt to require imaging at this time. Patient in agreement with this. Patient given solu medrol, flexeril, tylenol, lidocaine patch. On reeval, he is feeling improved, states he is ready to go home. Ambulating around the ED room with a steady gait w/o issue. Reasonable candidate for continued outpatient management. He did have a an appointment with his primary care doctor yesterday and states he did not mention the pain. Advised to contact PCP office again for follow-up. Will discharge with muscle relaxers and lidocaine patches for home. Advised to continue Tylenol/ibuprofen. Given return precautions. Patient is in agreement with plan. Discharged in stable condition. Medical Records Attestation: I reviewed the patient's medical records. Discharge Plan Discharge Clinical Impression: Lumbar radiculopathy Strain of lumbar region Qualifiers: Encounter type: initial encounter Qualified Code(s): S39.012A - Strain of muscle, fascia and tendon of lower back, initial encounter Patient Disposition: Home Condition: Stable Instructions: Antibiotic Form, Sciatica (ED), Acute Low Back Pain (ED), Lumbar Radiculopathy (ED) Additional Instructions: Continue Tylenol and Ibuprofen as needed for pain. You may use 600mg Ibuprofen and 1000mg of Tylenol every 6 hours. You may use ice/heat, lidocaine patches to area of pain. Take muscle relaxers as needed and prescribed. Recommend taking these at night as they may cause sedation. Do not drive, operate heavy machinery, drink alcohol while on muscle relaxers as this may cause further sedation. Follow-up with your primary care doctor for further evaluation. Call office to make appointment. Return to the ED if you experience worsening or severe pain, fall or injury, numbness in groin or legs, going to the bathroom without meaning to, unable to keep down food or drink, or any other symptoms of concern. Patient Language: Telugu Prescriptions: New cyclobenzaprine 5 mg tablet 10 mg PO TID PRN (Reason: muscle spasm) Qty: 20 0RF lidocaine 5 % adhesive patch,medicated 1 patch topical DAILY Qty: 15 0RF Rx Instructions: leave on most painful area for up to 12 hrs No Action Farxiga 5 mg tablet 5 mg PO DAILY metformin 1,000 mg tablet 1,000 mg PO BID glimepiride 2 mg tablet 2 mg PO QAM Rx Instructions: administer with breakfast atorvastatin 40 mg tablet 40 mg PO DAILY olmesartan 40 mg tablet 40 mg PO DAILY carvedilol 25 mg tablet 25 mg PO Q12H Rx Instructions: must administer with a meal/food aspirin 325 mg tablet 325 mg PO DAILY cyanocobalamin (vitamin B-12) 1,000 mcg tablet 1,000 mcg PO DAILY flaxseed oil 1,000 mg capsule 1,000 mg PO DAILY Rx Instructions: administer with a meal Adult Probiotic 3 billion cell capsule 3,000 mmu cells PO DAILY Rx Instructions: administer with a meal Follow-up/Referrals: Amish Gama, RT(R) [Primary Care Provider, Nursing] Time of Disposition: 02:49
[2025-08-30] MEDS: ACETAMINOPHEN 500 MG TABLET 1000 MG PO (02:14)
[2025-08-30] MEDS: CYCLOBENZAPRINE HCL 10 MG TABLET PO (02:15)
[2025-08-30] MEDS: LIDOCAINE 5% PATCH 1 PATCH TRANSDERM (02:15)
== END 2025-08-30 03:07 | disposition home or self-care (01) ==
PROVIDERS: Emergency Provider Physician Assistant
DX: M54.16 Radiculopathy, lumbar region (principal); S39.012A Strain of muscle, fascia and tendon of lower back, initial encounter; E11.9 Type 2 diabetes mellitus without complications; Z79.84 Long term (current) use of oral hypoglycemic drugs; Z79.82 Long term (current) use of aspirin; X58.XXXA Exposure to other specified factors, initial encounter
CPT/HCPCS: 96372; 99283; A9270; J2919